=== PATIENT | male | born 1935 | race Caucasian/White ===

== ENCOUNTER → 2018-12-29 | Outpatient (REF) | payer MEDICARE ==
[~2018-12-29] MED LIST: ASPI81TA26 PO; CLOP75TA2 PO; CRES20TA2 PO; FURO40TA2 PO; JARD1TAB3 PO; LATA0.0015 OU; METF10004 PO; METO1TAB33 PO; OMEP40CA2 PO; PRED10TA2 PO; TOUJ300I2 SC
== END ==
LOC: M LAB REF 10:58
PROVIDERS: ATTEND Internal Medicine
DX: C34.90 Malignant neoplasm of unspecified part of unspecified bronchus or lung (principal)